=== PATIENT | male | born 1990 | race Two or more races ===

== ENCOUNTER 2022-06-22 10:15 | Emergency (ER) | payer MEDICAID ==
[~2022-06-22] VITALS: Ht 167.6 cm; Wt 93.9 kg
[2022-06-22 11:15] VITALS: BP 133/92
[2022-06-22] MEDS ORDERED: INDO50CA82 PO (12:46)
[2022-06-22] MEDS ORDERED: CIPR-173 PO (12:46)
== END 2022-06-22 13:03 | disposition home or self-care (01) ==
LOC: ER 10:15
DX: N45.1 Epididymitis (principal)
CPT/HCPCS: 76870

== ENCOUNTER 2024-03-16 11:25 | Emergency (ER) | payer MEDICAID ==
[~2024-03-16] VITALS: Ht 165.1 cm; Wt 99.7 kg
[~2024-03-16 11:25] MED LIST: CIPR-173 PO; INDO50CA82 PO
[2024-03-16 13:14] LABS: Urine Bacteria None Seen /hpf (None Seen)
[2024-03-16 13:21] LABS: Urine Blood Negative /uL (Negative); Urine Clarity Clear (Clear); Urine Color Colorless (Yellow); Urine Protein, UAD Negative (Negative); Urine Specific Gravity 1.008 (1.001-1.035); Urine Squamous Epithelial Cell None Seen /hpf (<5); Urine Urobilinogen Normal (Negative); Urine WBC 1 /hpf (0 - 3)
--- NOTE | 2024-03-16 13:26 | ED.PDOC ---
History of Present Illness HPI Comments Male patient presents to the clinic for pain to the left lateral side of the penis. Patient denies any rough sexual intercourse, aspiration, injury or trauma. Patient reports that he has been off work recently and has been sitting at home. Patient denies any bleeding issues. Patient reports that the pain has decreased his since this morning. Patient reports that he was in the shower this morning when he noticed a bump on the left side of his penis and that in the bump has gone away and that he now has a bruising. Patient states that he had a vasectomy 3 years ago. Chief Complaint: Penile Problem Time Seen by MD: 12:23 Primary Care Provider: none Reviewed Notes: Nurses Notes Allergies: Coded Allergies: NO KNOWN ALLERGIES (Unverified , 05/17/10) Home Meds Active Scripts Indomethacin (Indomethacin) 50 Mg Cap, 1 CAP PO TID, #30 CAP 1 Refill Prov:NATIVIDAD BHANDARI 06/22/22 Ciprofloxacin Hcl (Cipro) 500 Mg Tab, 1 TAB PO BID, #28 TAB Prov:NATIVIDAD BHANDARI 06/22/22 Mode of Arrival: Ambulatory Past Medical History PAST MEDICAL HISTORY: Denies Surgical History: Denies all surgeries Family History Family History: Reviewed,noncontributory to illness Social History Smoker: Non-Smoker Alcohol: Denies ETOH Use Drugs: Denies Drug Use Lives In: Home Constitutional: denies: chills, diaphoresis, fatigue, fever, malaise, sweats, weakness, others EENTM: denies: blurred vision, double vision, ear bleeding, ear discharge, ear drainage, ear pain, ear ringing, eye pain, eye redness, hearing loss, mouth pain, mouth swelling, nasal discharge, nose bleeding, nose congestion, nose pain, photophobia, tearing, throat pain, throat swelling, voice changes, others Respiratory: denies: cough, hemoptysis, orthopnea, SOB at rest, shortness of breath, SOB with excertion, stridor, wheezing, others Cardiovascular: denies: chest pain, dizzy spells, diaphoresis, Dyspnea on exertion, edema, irregular heart beat, left arm pain, lightheadedness, palpitations, PND, syncope, others Genitourinary: reports: penile sore Neurological: denies: dizziness, fainting, headache, left sided numbness, left sided weakness, numbness, paresthesia, pre-existing deficit, right sided numbness, right sided weakness, seizure, speech problems, tingling, tremors, weakness, others Musculoskeletal: denies: back pain, gout, joint pain, joint swelling, muscle pain, muscle stiffness, neck pain, others Integumetry: denies: bruises, change in color, change in hair/nails, dryness, laceration, lesions, lumps, rash, wounds, others Allergic/Immunocompromised: denies: Difficulty Healing, Frequent Infections, Hives, Itching, others Hematologic/Lymphatic: denies: anemia, blood clots, easy bleeding, easy bruising, swollen glands, others Endocrine: denies: excessive hunger, excessive sweating, excessive thirst, excessive urination, flushing, intolerance to cold, intolerance to heat, unexplained weight gain, unexplained weight loss, others Psychiatric: denies: anxiety, bipolar disorder, depression, hopeless, panic disorder, schizophrenia, sleepless, suicidal, others All Other Systems: Reviewed and Negative Physical Exam General Appearance: No Apparent Distress, Normal HEENT: Normal ENT Inspection, Pharynx Normal, TMs Normal Neck: Full Range of Motion, Non-Tender, Normal, Normal Inspection Respiratory: Chest Non-Tender, Lungs Clear, No Accessory Muscle Use, No Respiratory Distress, Normal Breath Sounds Cardiovascular: No Edema, No JVD, No Murmur, No Gallop, Normal Peripheral Pulses, Regular Rate/Rhythm Breast Exam: Deferred Gastrointestinal: No Organomegaly, Non Tender, No Pulsatile Mass, Normal Bowel Sounds, Soft Genitalia: Penis (Ecchymosis to the right lateral portion of the shaft of the penis.) Pelvic: Deferred Rectal: Deferred Extremities: No calf tenderness, Normal capillary refill, Normal inspection, Normal range of motion, Non-tender, No pedal edema Musculoskeletal : Apperance: Normal Neurologic: Alert, pier runner II-XII nml as Tested, No Motor Deficits, Normal Affect, Normal Mood, No Sensory Deficits Cerebellar Function: Normal Reflexes: Normal Skin: Dry, Normal Color, Warm Lymphatic: No Adenopathy Was a procedure done? Was a procedure done?: No Differential Dx Considerations may include: Penile contusion, penile abrasion, priapism X-Ray, Labs, Meds, VS Vital Signs Date Time Temp Pulse Resp B/P (MAP) Pulse Ox O2 Delivery O2 Flow Rate FiO2 03/16/24 13:57 96 18 96 Room Air 03/16/24 13:57 98.6 96 18 134/87 (103) 96 98.6 03/16/24 11:37 98.3 94 20 145/88 (107) 97 Lab Test 03/16/24 12:26 Range/Units Urine Color Colorless Yellow Urine Clarity Clear Clear Urine pH 7.0 5.0-9.0 Urine Specific [place] 1.008 1.001-1.035 Urine Protein Negative Negative Urine Ketones Negative Negative Urine Blood Negative Negative /uL Urine Nitrite Negative Negative Urine Bilirubin Negative Negative Urine Urobilinogen Normal Negative mg/dL Urine Leukocyte Esterase Negative Negative /uL Urine RBC <1 0 - 3 /hpf Urine WBC 1 0 - 3 /hpf Urine Squamous Epithelial Cells None seen <5 /hpf Urine Bacteria None seen None Seen /hpf Urine Glucose Normal Normal mg/dL X-Ray, Labs, Meds, VS Comment Patient advised to refrain from sexual intercourse and masturbation. Patient advised to follow up with primary care physician if bruising continues. On re-evaluation patient has symptomatic improvement. Patient is stable for discharge at this time. All test results and diagnostic imaging have been interpreted. All diagnostic findings, discharge care, and education instruction provided to the patient. Follow-up with PCP in 2-3 days Patient verbalized understanding, discharge instructions and agrees to treatment plan Vital signs are stable Patient is ambulatory Patient advised of which symptoms necessitate a return visit to the emergency room. Patient to return emergency room for any new worsening symptoms. Patient is aware that the purpose of this visit is for an acute medical emergency requiring emergent stabilization. Chronic conditions, including malignancies have not been ruled out. Patient is instructed to follow up with PCP as directed for continued care and workup. If unable to arrange follow up, patient is to return to the emergency room for reassessment. Patient was given verbal and written discharge instructions and acknowledges understanding Time of 1ST Reevaluation: 13:25 Reevaluation 1ST: Improved Patient Education/Counseling: Diagnosis, Treatment, Prognosis Family Education/Counseling: No Family Present Departure 1 Departure Time of Disposition: 13:36 Impression: Primary Impression: Bruise of penis Disposition: 01 HOME / SELF CARE / HOMELESS Condition: Stable Discharged With: Self Critical Care Note Critical Care Time?: No Stability Stability form required: No Heart Score Heart Score: Heart Score Response (Comments) Value History N/A 0 EKG N/A 0 Age N/A 0 Risk Factors N/A 0 Troponin N/A 0 Total [address] [facility] Mar 16, 2024 13:25
[2024-03-16 13:57] VITALS: BP 134/87; PULSE 96; RESP 18; TEMP 98.6; O2SAT 96
== END 2024-03-16 14:00 | disposition home or self-care (01) ==
LOC: ER 11:29
DX: S30.21XA Contusion of penis, initial encounter (principal); X58.XXXA Exposure to other specified factors, initial encounter; Y93.89 Activity, other specified; Y92.89 Other specified places as the place of occurrence of the external cause; Y99.8 Other external cause status
CPT/HCPCS: 81001